=== PATIENT | male | born 1950 | race Caucasian/White ===

== ENCOUNTER → 2021-04-15 | Outpatient (CLI) | payer OTHER ==
--- NOTE | 2021-04-15 16:19 | EKG ---
[place] [address] ELECTROCARDIOGRAM REPORT Name: STANISLAW SINHA Room: [facility]#: [id number] Admission: 04/15/21 Attend Phys: Zac Wyman Discharge: Date of : 54 Date of Service: 04/15/21 1323 Report #: [id number] THIS REPORT FOR: //name// [facility] Test Date: 2021-04-15 Test Time: 13:23:51 Pat Name: STANISLAW SINHA Department: Room: Gender: [employer]er [employer]immer: : 1950 Requested By: Zac Resendiz Order Number: [id number] MD: Frandy Austin Measurements Intervals [place] Rate: 78 P: 51 WI: 214 QRS: -49 QRSD: 108 T: 61 QT: 380 QTc: 433 Interpretive Statements Sinus rhythm Borderline prolonged [place] interval Left anterior fascicular block Abnormal R-wave progression, late transition No previous ECG available for comparison Electronically Signed On 04-15-2021 16:19:20 CDT by Frandy Austin [email or web address] <ELECTRONICALLY SIGNED> By: Frandy Austin MD, FAC 04/15/21 1619 1323 1323 Frandy Austin MD, [facility] /EPI
== END ==
LOC: M.CRD 13:00
PROVIDERS: ATTEND Chiropractor
DX: I49.9 Cardiac arrhythmia, unspecified (principal); R94.31 Abnormal electrocardiogram [ECG] [EKG]